=== PATIENT | male | born 1970 | race Caucasian/White ===

== ENCOUNTER 2018-10-19 14:54 | Outpatient (REF) | payer BC, SELFPAY ==
[2018-10-19 22:16] LABS: HCT 46.4 % (40.0-50.0); HGB 15.7 g/dL (13.5-17.5); Mean Corp. HGB Concentration 33.8 g/dL (32.0-36.0); Mean Corpuscular Hemoglobin 29.2 pg (27.0-33.0); Mean Corpuscular Volume 86.2 fL (80-95); Mean Platelet Volume 11.8 fL (8.0-11.0); Platelet Count 221 x1000/uL (130-400); RBC 5.38 m/cumm (4.50-6.00); RBC Distribution Width 13.2 % (11.8-14.1); White Blood Cell Count 7.82 k/cumm (4.4-10.8)
[2018-10-19 22:20] LABS: ALT 57 U/L (12-78); AST 23 U/L (15-37); Cholesterol 282 mg/dL (50-200); HDL Cholesterol 50 mg/dL (40-60); LDL CHOLESTEROL 189 mg/dL (<100); Triglyceride 268 mg/dL (30-150)
== END 2018-10-19 15:14 ==
LOC: NCHCN 14:54
PROVIDERS: PCP Family Medicine; Visit Provider Nurse Practitioner Family
DX: Z00.00 Encounter for general adult medical examination without abnormal findings (principal); Z13.0 Encounter for screening for diseases of the blood and blood-forming organs and certain disorders involving the immune mechanism; Z13.220 Encounter for screening for lipoid disorders
CPT/HCPCS: 80061; 83721; 85027; 84450; 84460

== ENCOUNTER 2019-10-05 02:13 | Outpatient (CLI) | payer BC, SELFPAY ==
--- NOTE | 2019-10-05 | PFT_ITS ---
PULMONARY FUNCTION TEST REPORT Patient - Eve Crooks DATE OF SERVICE October 05, 2019 REQUESTING PROVIDER Tino Lopez M.D. INTERPRETATION OF STUDY Spirometry shows no evidence of obstructive airways disease. No bronchodilator response. LUNG VOLUMES - Lung volumes show no evidence of restriction. DIFFUSION CAPACITY- Normal. AIRWAY RESISTANCE - Normal. IMPRESSION Overall normal pulmonary function study. Clinical correlation recommended. When this study was compared to previous one from 10/15/2014, the patient has a total of 180 cc decline in FVC. FEV1 has declined by 160 cc. Regina Caballero M.D. JERMAIN/ T- 10/13/19
[2019-10-05] MEDS: Albuterol HFA 18 GM 200 PUFF INH IH (09:33)
[2019-10-05] MEDS: Inhaler, Assist Device 1 EACH MC (09:33)
== END 2019-10-05 02:33 ==
PROVIDERS: PCP Family Medicine; Visit Provider Internal Medicine
DX: R05 Cough (principal); J45.998 Other asthma; R06.09 Other forms of dyspnea
CPT/HCPCS: 94060; 94726; 94729

== ENCOUNTER 2019-10-24 10:31 | Outpatient (CLI) | payer BC, SELFPAY ==
--- NOTE | 2019-10-24 | DI.RAD_ITS ---
EXAM: XR CHEST 2V PA LATERAL CLINICAL HISTORY: COUGH NONPRODUCTIVE R05 TECHNIQUE: 2D digital imaging was performed. COMPARISON: No exams were available for comparison FINDINGS: MEDIASTINUM: Normal. HEART: Normal. PULMONARY VASCULATURE: Normal. LUNGS: Clear. PLEURAL SPACE: No pleural effusion or pneumothorax. BONE:Normal. OTHER FINDINGS:Normal. IMPRESSION: No acute pulmonary findings. DATA REPOSITORY: RADIATION DOSE DELIVERED:
== END 2019-10-24 10:51 ==
PROVIDERS: PCP Family Medicine; Visit Provider Internal Medicine
DX: R05 Cough (principal)
CPT/HCPCS: 71046

== ENCOUNTER 2020-11-26 17:47 | Outpatient (REF) | payer BC, SELFPAY ==
[2020-11-26 13:37] LABS: Calculated LDL 126 mg/dL (<100); Cholesterol 223 mg/dL (<200); HDL Cholesterol 56 mg/dL (40-60); Triglyceride 208 mg/dL (<150)
[2020-11-26 21:39] LABS: PSA, Screening 0.4 ng/mL (0.0-3.5)
== END 2020-11-26 17:48 | disposition home or self-care (01) ==
LOC: NCHCN 17:47
PROVIDERS: PCP Family Medicine; Visit Provider Nurse Practitioner Family
DX: Z00.00 Encounter for general adult medical examination without abnormal findings (principal); Z13.220 Encounter for screening for lipoid disorders; Z12.5 Encounter for screening for malignant neoplasm of prostate
CPT/HCPCS: 80061; 84153

== ENCOUNTER 2021-05-16 01:00 | Outpatient (CLI) | payer BC, SELFPAY ==
[2021-05-16 10:41] LABS: Source Nasal/Nares
[2021-05-16 13:18] LABS: COVID-19 PCR Negative (Negative)
== END 2021-05-16 01:01 | disposition home or self-care (01) ==
LOC: LBO 01:00
PROVIDERS: PCP Family Medicine; Visit Provider Surgery
DX: Z20.822 Contact with and (suspected) exposure to COVID-19 (principal); Z01.818 Encounter for other preprocedural examination
CPT/HCPCS: 87635

== ENCOUNTER 2021-05-19 08:19 | Day surgery (SDC) | payer BC, SELFPAY ==
--- NOTE | 2021-05-19 06:34 | W.COLOREPORT ---
Colonoscopy Report Date of procedure: 05/19/21 Pre-op diagnosis general: Colon Cancer Screening Post-op diagnosis procedure note: same (and diverticulosis) Procedure: Colonoscopy Surgeon: Kristen Jones Anesthesia Type: General:No Airway (Abeba Rojas CRNA) Estimated blood loss (mL): 0 Pathology: none sent Complications: None Disposition: same day Indications: Mr. Crooks is a pleasant 50 year old male who is here to discuss a screening colonoscopy. He is healthy and denies any GI issues. Risks, benefits and complications have been reviewed. Complications include but are not limited to bleeding, pain, perforation, missed small lesion/polyp, sore throat, aspiration and adverse reaction to the medications. Questions were entertained and answered to their satisfaction and they wished to proceed. No guarantees were given or implied. Proceed with colonoscopy under sedation Prep: Miralax/Dulcolax Procedure Start Time: 09:02 Procedure End Time: : Retraction Time: 10 minutes Findings: Araya diverticulosis Procedure Description: After informed consent was obtained the patient was taken to the procedure room and placed in a left decubitous position. Monitors were applied and a time out was done. The patients name, date of , procedure, allergies to medications and metal in their body was reviewed. The patient was then sedated. Once sedated and comfortable a rectal exam was done. External exam was normal. Internal exam revealed a normal sphincter tone and no palpable masses. The prostate felt smooth and slightly enlarged. The scope was then introduced and retro-flexed. No internal hemorrhoids, polyps or masses were identified on retro-flexion. The scope was then advanced to the cecum without difficulty. The ileocecal vlave and appendiceal orifice were identified. The prep was good. The scope was then slowly retracted over 10 minutes back into the rectum. There were no polyps. There was araya- diverticulosis noted. The scope was removed and the patient was woken up and taken back to Same day surgery in stable condition. The patient tolerated the procedure well and there were no immediate complications. Follow up: The patient should follow up in 10 years unless they develop changes in bowel habits or other new gastrointestinal complaints.
--- NOTE | 2021-05-19 06:35 | W.PM.DSUDISC ---
Discharge Plan Disposition Patient Disposition: HOME Condition: Good Discharge Details Reason For Visit: Colonoscopy Attending Provider: Kristen Jones Primary Care Provider: Shanda Pak Home Meds and New Rx's Prescriptions: Continued fluticasone propionate [Flonase Allergy Relief] 50 mcg/actuation spray,suspension 1 spray intranasal BID RF: 0 albuterol sulfate [ProAir HFA] 200 PUFF HFA aerosol inhaler 2 puff Inhalation PRN PRNRF: 0 Discontinued bisacodyl [Dulcolax (bisacodyl)] 5 mg tablet,delayed release (DR/EC) 5 mg PO ONCE Qty: 4 RF: 0 polyethylene glycol 3350 17 gram powder in packet 255 g PO DAILY Qty: 15 RF: 0 Discharge Instructions Instructions: Diverticulosis (DC) Additional Instructions: Findings: diverticulosis Follow up: 10 years Please call if you develop: fevers >101.5 Nausea or Vomiting Abdominal pain that is not transient Rectal bleeding that is more then a tbsp A hard abdomen and inability to pass gas DAY SURGERY UNIT POST ENDOSCOPY INSTRUCTIONS Instructions for everyone who is given Anesthesia: For your safety, please do the following for the next 24 Hours: a. Do not drive or operate dangerous equipment b. Do not drink alcohol beverages or use any recreational drugs for the first 24 hours or while taking pain medications. The medications in your body may have a reaction that can be dangerous. c. Do not make any important decisions or sign any important papers 1. Generally there are no restrictions on your activity after a day or so has gone by, but you may feel a bit fatigued for a few days. 2. After you arrive home you may have a light meal and return to a normal diet as you can tolerate it without feeling sick to your stomach. 3. After surgery, you may feel pain or discomfort. This should be only transient, but if it persists please contact your doctor. 4. If there are any questions regarding the findings of your procedure, please feel free to contact your doctor. 6. If you are unable to contact your doctor with a problem, contact the hospital at [phone]. 7. Continue all your regular medications unless directed otherwise. I understand the above instructions and have no questions. Signature of Patient or Responsible Adult Escort Date/Time Name of Responsible Adult Escort Signature of Nurse Date/Time Activity:: Activity as Tolerated Diet:: high fiber diet Discharge Orders Discharge Orders: Discharge Order (Routine); Ordered 05/19/21 Ordered By: Kristen Jones
[2021-05-19 08:20] VITALS: BP 109/84; PULSE 59; RESP 16; TEMP 35.8; O2SAT 98
[2021-05-19] MEDS: Lactated Ringers 1,000 ML 80 ML IV (08:56)
--- NOTE | 2021-05-19 09:33 | W.ANESPRE ---
General Info Date of Service Date Performed: 05/19/21 Height: 6 ft Weight: 89.4 kg Body Mass Index (BMI): 26.7 Surgical Procedure: Operation Date: 05/19/21 10:05 Proposed Procedures Side Surgeon p Colonoscopy Kristen Jones MD Meds Allergies and Home Medications Allergies Allergy/AdvReac Type Severity Reaction Status Date / Time No Known Allergies Allergy Unverified 05/19/21 08:36 Home Medication Medication Instructions Recorded albuterol sulfate [ProAir HFA] 2 puff INHALATION PRN PRN 03/14/17 fluticasone propionate 50 1 spray INTRANASAL BID 12/31/20 mcg/actuation nasal spray,suspension bisacodyl 5 mg tablet,delayed 5 mg PO ONCE #4 tab 05/06/21 release polyethylene glycol 3350 17 gram 255 g PO DAILY #15 ea 05/06/21 oral powder packet Current Visit Medications: Current Medications Generic Name Dose Route Start Last Admin Trade Name Freq PRN Reason Stop Dose Admin Hyoscyamine Sulfate 0.125 mg 05/19/21 06:35 Hyoscyamine 0.125 Mg Sl/Oral/Chew SL DIRECTED PRN Ringer's Solution 1,000 mls @ 80 mls/hr 05/19/21 06:00 05/19/21 08:56 IV 06/15/21 23:59 80 mls/hr INFUSION RAGHU Administration IV Miscellaneous Supplies 1 each 05/19/21 06:00 Iv Access IV 06/15/21 23:59 DIRECTED RAGHU Ondansetron HCl 4 mg 05/19/21 06:35 Ondansetron 4 Mg/2 Ml Vial IVP Q4H PRN PRN Nausea / Vomiting Sodium Chloride 0 ml 05/19/21 06:00 Normal Saline Flush 10 Ml Syr IV 06/15/21 23:59 PRN PRN Sodium Chloride 0 ml 05/19/21 06:00 Normal Saline 10 Ml Vial IJ 06/15/21 23:59 DIRECTED PRN Sterile Water 0 ml 05/19/21 06:00 Water,Injection,Sterile 10 Ml Vial IJ 06/15/21 23:59 DIRECTED PRN PFSH Active Problems Active Problems: Problem Status Onset Code Screening for colon cancer Z12.11 Exercise-induced asthma J45.990 Hyperlipidemia E78.5 Chronic cough R05 History of tobacco abuse Z87.891 Medical History Medical History Chronic cough Exercise-induced asthma History of tobacco abuse Hyperlipidemia Surgical History Surgical History (Updated 05/19/21 @ 08:59 by Irina Gutierrez) History of esophagogastroduodenoscopy (EGD) Tobacco Smoking/Tobacco Use Status: Former Tobacco Use Substance Use Substance use: Occasionally Substance use type: marijuana Vital Signs and Lab Results Vital Signs Most Recent Vital Signs in EMR: Most Recent Vital Signs Temp Pulse Resp BP Pulse Ox 35.8 C L 59 L 16 109/84 98 05/19/21 08:20 05/19/21 08:20 05/19/21 08:20 05/19/21 08:20 05/19/21 08:20 Lab Results Blood Type / Crossmatch: No Data to Display Complete Blood Count: No Data to Display Complete Metabolic Panel: No Data to Display Liver Function Panel: No Data to Display Coagulation Panel: No Data to Display Cardiac Panel: No Data to Display Arterial Blood Gas: No Data to Display Venous Blood Gas: No Data to Display Pancreas Panel: No Data to Display Thyroid Panel: No Data to Display Infectious Disease: Coronavirus (COVID-19)(PCR) Negative (Negative) 05/16/21 08:39 05/16/21 Coronavirus 2019 Source Nasal/Nares 05/16/21 08:39 05/16/21 Blood Cultures: No Data to Display Toxicology Panel: No Data to Display Imaging and Studies Imaging and Studies Pulmonary Function Summary: INTERPRETATION OF STUDY Spirometry shows no evidence of obstructive airways disease. No bronchodilator response. LUNG VOLUMES - Lung volumes show no evidence of restriction. DIFFUSION CAPACITY- Normal. AIRWAY RESISTANCE - Normal. 10/05/19 Anesthesia Assessment and Plan Anesthesia History Personal History: No History of Anesthesia Complications Family History: No Family History of Anesthesia Complications Exercise Tolerance Exercise Tolerance: Metabolic Equivalents>4 Pertinent Negatives Pertinent Negatives: No Symptoms of GERD, No Major Cardiovascular Symptoms or Complaints, No History of CVA/TIA and Other (Exercise induced asthma, uses inhaler every other day) Cardiac & Pulmonary Exam Cardiac Exam: Normal S1/S2 Heart Sounds Pulmonary Exam: Clear Bilateral Breath Sounds Airway Exam Known Difficult Airway: No Mallampati Class: 3 Mouth Opening: Normal (> 3cm) Thyromental Distance: Greater than 3 cm Facial Hair: Full [place]) Neck Range of Motion: Full ROM Neck Circumference: Normal Teeth Condition: Normal Dentition ASA Classification ASA Score: ASA 2 Emergency Case?: No NPO Status NPO Status: NPO Clears >2 hours, Solids >8 hours Anesthesia Plan Resuscitation Status: Full Code Anesthesia Technique: General Anesthesia Airway Planned: Natural Airway Monitors Used: Standard Monitors
[2021-05-19 09:54] VITALS: BMI 26.7
[2021-05-19 10:30] VITALS: BP 116/75; PULSE 65; RESP 16; TEMP 36.2; O2SAT 95
--- NOTE | 2021-05-19 10:38 | W.ANESPOSTOP ---
Postoperative Evaluation Date, Time and Location Date Performed: 05/19/21 Time Performed: 10:39 Patient Location: Day Surgery Unit Vital Signs Most Recent Imported Vital Signs: Most Recent Vital Signs Temp Pulse Resp BP Pulse Ox 36.2 C L 65 16 116/75 95 05/19/21 10:30 05/19/21 10:30 05/19/21 10:30 05/19/21 10:30 05/19/21 10:30 Pain Score Most Recent Pain Score: Most Recent Pain Score Pain Level 0 05/19/21 10:30 Assessment Mental Status: Awake (Alert & Oriented to Patient Baseline) Airway and Respiratory Function: Patent airway with normal (patient baseline) respiratory exam Cardiovascular Function: Hemodynamically Stable Hydration Status: Adequately Hydrated Nausea & Vomiting: No Nausea or Vomiting Pain: Pain is tolerable per patient Peripheral Nerve Block: Patient did not receive a nerve block
[2021-05-19 10:50] VITALS: BP 111/74; PULSE 50; RESP 16; TEMP 36.1; O2SAT 96
== END 2021-05-19 11:25 | disposition home or self-care (01) ==
LOC: SUR 08:19
PROVIDERS: PCP Family Medicine; Visit Provider Surgery
PROC: 0DJD8ZZ Inspection of Lower Intestinal Tract, Via Natural or Artificial Opening Endoscopic (ICD-10-PCS; CPT 45378; principal; 2021-05-19 10:00)
DX: Z12.11 Encounter for screening for malignant neoplasm of colon (principal); K57.30 Diverticulosis of large intestine without perforation or abscess without bleeding
CPT/HCPCS: 45378; J2001